=== PATIENT | male | born 1975 ===

== ENCOUNTER 2021-05-12 09:54 | Outpatient (REF) | payer BC, SELFPAY ==
[2021-05-12 11:55] LABS: Alanine Aminotransferase 26 U/L (0-40); Albumin Level 4.2 g/dL (3.5-5.0); Alkaline Phosphatase 78 U/L (39-117); Anion Gap 10 (12-20); Aspartate Amino Transferase 20 U/L (5-37); Blood Urea Nitrogen 12 mg/dL (9-16); Calcium 9.3 mg/dL (8.4-10.2); Carbon Dioxide 30 mmol/L (22-29); Chloride 103 mmol/L (96-108); Cholesterol 184 mg/dL; Estimated Glomerular Filt Rate > 60; Glucose Fasting 155 mg/dL (60-99); HDL Cholesterol 82 mg/dL; LDL Cholesterol Calculated 93 mg/dl; Potassium 4.2 mmol/L (3.3-5.1); Sodium 139 mmol/L (135-145); Total Protein 6.7 g/dL (6.5-8.0); Triglycerides 47 mg/dL
[2021-05-12 12:12] LABS: TSH reflex Free T4 1.54 uIU/mL (0.32-4.0)
== END 2021-05-12 09:55 | disposition home or self-care (01) ==
LOC: HO.WFDLDS 09:54
PROVIDERS: Visit Provider Family Medicine
DX: Z00.00 Encounter for general adult medical examination without abnormal findings (principal); Z12.5 Encounter for screening for malignant neoplasm of prostate
CPT/HCPCS: 36415; 80053; 80061; 84153; 84443

== ENCOUNTER → 2021-10-13 13:55 | Outpatient (BNVA) | payer BC, SELFPAY | PROVIDERS: PCP Family Medicine; Visit Provider Internal Medicine Endocrinology, Diabetes & Metabolism | DX: E10.9 Type 1 diabetes mellitus without complications (principal); Z79.4 Long term (current) use of insulin | CPT/HCPCS: 82947 ==

== ENCOUNTER → 2021-11-28 11:16 | Outpatient (BNVA) | payer BC, SELFPAY | PROVIDERS: PCP Family Medicine; Visit Provider Dietitian, Registered | DX: E10.9 Type 1 diabetes mellitus without complications (principal) | CPT/HCPCS: 97802 ==

== ENCOUNTER → 2022-01-17 11:37 | Outpatient (BNVA) | payer BC, SELFPAY | PROVIDERS: PCP Family Medicine; Visit Provider Internal Medicine Endocrinology, Diabetes & Metabolism | DX: E10.9 Type 1 diabetes mellitus without complications (principal) | CPT/HCPCS: 82947; 83036 ==

== ENCOUNTER 2022-02-02 09:19 | Outpatient (REF) | payer BC, SELFPAY ==
[2022-02-06 20:35] LABS: Glutamic acid decarboxylase Ab 53 IU/mL (<5)
== END 2022-02-02 09:20 | disposition home or self-care (01) ==
LOC: HO.WFDLDS 09:19
PROVIDERS: Visit Provider Internal Medicine Endocrinology, Diabetes & Metabolism
DX: E10.9 Type 1 diabetes mellitus without complications (principal)
CPT/HCPCS: 36415; 86341

== ENCOUNTER 2022-02-07 09:25 | Outpatient (REF) | payer BC, SELFPAY ==
[2022-02-07 12:39] LABS: Creatinine Urine 48.69 mg/dL; Microalbumin Urine < 5.0 mg/L
== END 2022-02-07 09:26 | disposition home or self-care (01) ==
LOC: HO.WFDLNP 09:25
PROVIDERS: PCP Family Medicine; Visit Provider Internal Medicine Endocrinology, Diabetes & Metabolism
DX: E10.9 Type 1 diabetes mellitus without complications (principal)
CPT/HCPCS: 82043

== ENCOUNTER → 2022-05-16 09:48 | Outpatient (BNVA) | payer BC, SELFPAY | PROVIDERS: PCP Family Medicine; Visit Provider Internal Medicine Endocrinology, Diabetes & Metabolism | DX: E10.9 Type 1 diabetes mellitus without complications (principal) | CPT/HCPCS: 82947; 83036 ==

== ENCOUNTER → 2022-08-22 09:03 | Outpatient (BNVA) | payer BC, SELFPAY | PROVIDERS: PCP Family Medicine; Visit Provider Internal Medicine Endocrinology, Diabetes & Metabolism | DX: E10.9 Type 1 diabetes mellitus without complications (principal) | CPT/HCPCS: 82947; 83036 ==

== ENCOUNTER 2022-09-29 09:57 | Outpatient (REF) | payer BC, SELFPAY ==
[2022-09-29 12:14] LABS: Cholesterol 218 mg/dL; HDL Cholesterol 80 mg/dL; LDL Cholesterol Calculated 127 mg/dl; Triglycerides 57 mg/dL
== END 2022-09-29 09:58 | disposition home or self-care (01) ==
LOC: HO.WFDLDS 09:57
PROVIDERS: Visit Provider Internal Medicine Endocrinology, Diabetes & Metabolism
DX: E10.9 Type 1 diabetes mellitus without complications (principal)
CPT/HCPCS: 36415; 80061

== ENCOUNTER 2022-11-21 09:38 | Outpatient (REF) | payer BC, SELFPAY ==
[2022-11-21 11:52] LABS: Alanine Aminotransferase 19 U/L (0-40); Albumin Level 4.1 g/dL (3.5-5.0); Alkaline Phosphatase 79 U/L (39-117); Anion Gap 10 (12-20); Appearance Urine Clear; Aspartate Amino Transferase 18 U/L (5-37); Bilirubin Total 0.7 mg/dL (0.0-1.0); Blood Urea Nitrogen 17 mg/dL (9-16); Calcium 9.4 mg/dL (8.4-10.2); Carbon Dioxide 28 mmol/L (22-29); Chloride 106 mmol/L (96-108); Cholesterol 200 mg/dL; Color Urine Yellow; Estimated Glomerular Filt Rate > 60; Glucose Fasting 118 mg/dL (60-99); Glucose Urine UA Negative (Negative); HDL Cholesterol 92 mg/dL; LDL Cholesterol Calculated 99 mg/dl; Leukocyte Esterase Urine Negative (Negative); Nitrite Urine Negative (Negative); Potassium 4.1 mmol/L (3.3-5.1); Sodium 140 mmol/L (135-145); Total Protein 6.9 g/dL (6.5-8.0); Triglycerides 49 mg/dL; Urine Blood Negative (Negative); Urine Ketones Negative (Negative); Urine Protein Negative (Neg-Trace)
[2022-11-21 11:57] LABS: Prostate Specific Antigen Scr 0.29 ng/mL (<0.05-4.0); TSH reflex Free T4 2.49 uIU/mL (0.32-4.0)
[2022-11-21 12:15] LABS: Creatinine Urine 155.42 mg/dL; Microalbum/Creatinine Ratio Ur 3.8 ug/mg cr
== END 2022-11-21 09:39 | disposition home or self-care (01) ==
LOC: HO.WFDLDS 09:38
PROVIDERS: Visit Provider Family Medicine
DX: Z00.00 Encounter for general adult medical examination without abnormal findings (principal); Z12.5 Encounter for screening for malignant neoplasm of prostate; I10 Essential (primary) hypertension
CPT/HCPCS: 36415; 80053; 80061; 81003; 82043; 84153; 84443

== ENCOUNTER 2022-12-22 09:03 | Outpatient (AMB) | payer BC, SELFPAY ==
--- NOTE | 2022-12-22 09:10 | MHC.OFFVIS ---
Intake Vital Signs 12/22/22 09:13 Height 6 ft 1 in Weight 225 lb 1.471 oz BMI 29.7 BP 100/64 Blood Pressure Location Lt brachial Position Sitting Pulse 80 Pulse Source Pulse Oximeter Intake Visit Reasons: Type 1 DM Intake Note: Patient present today to follow up on Type 1 Diabetes Mellitus. Patient receives DME supplies through: [facility] Last Diabetic Eye exam: Has an upcoming appointment Last Podiatry Visit: Does not see a Line Servicer Random Glucose: 315 mg/dl HgA1C: 7.2% 11/21/2022 Laboratory Mechanical Technician Required: No Accompanied by: Self / Same As Patient Allergies Penicillins Allergy (Verified 12/22/22 09:14) unknown HPI HPI Comments History of Present Illness Details 47 YO M with is seen in consultation for T1DM at the request of PCP. Initially diagnosed with T1DM in age 41 when presented with DKA. Was seen several times by CDE Current regimen: Lantus 18 units Humalog 1:20 carb counting 1:50 for correction Dexcom download shows average glucose to be 171 with 79 standard deviations . He is wearing the sensor 79% of the time. 57% range with 38% hyperglycemia and 4% low and <1% very low. Trend is upward overnight with some hypoglycemia Patient admits snacking several times before going to bed Very rare sporadic hypoglycemia Treats lows with juice packs . does not Checks sugar after to ensure it is rising. . Family history of autoimmunity in daughter Type 1 DM Has eyes checked yearly, last eye exam 1 yr ago ,has appt this yr no retinopathy. Denies neuropathy, l Denies nephropathy, on Not AMRITA/ARB. Denies history of CAD. Diet/Carb counting: Yes Had prior episodes of DKA. Denies prior severe episodes of hypoglycemia requiring help or hospitalization. Labs: [facility] Medical History Anxiety Type 1 diabetes mellitus Surgical History No pertinent past surgical history Family History Mother Cancer Father No problems noted. Brother Mental health disorder Sister Mental health disorder Daughter Type 1 diabetes mellitus Social History Housing: House Alcohol intake: current Alcohol intake frequency: holidays/special occasions only Patient Tobacco Use Status: Never used Tobacco e-Cigarette/Vaping Use: Never Used Second Hand Smoke Exposure: No service: No Current occupational status: employed Current occupational exposures/hazards: No Cognitive needs: No Hearing needs: No Vision needs: No Physical Exam Vital Signs: BMI result Body Mass Index 29.7 Absence of Cushingoid features. Absence of acromegalic features. Neck exam reveals nl size thyroid about 15 gms. No thyroid nodules palpable. No carotid bruits present. Lungs CTA. Heart S1 S2, Reg R/R. No M/R/ G. Skin exam reveals absence of vitiligo or acanthosis nigricans. Abdominal exam reveals Soft NT/ND with NA BS. No organomegaly present. Extrem Other: Visual exam of foot performed. No ulcerations or open lesions. No onchomycosis, no callouses.Pulses 2 + distally. Sensation intact to monofilament exam. Vibratory sensation sensed 10 seconds in right, 10 seconds in left with 128 Hz tuning fork Assessment & Plan Assessment & Plan (1) Type 1 diabetes mellitus: Code(s): E10.9 - Type 1 diabetes mellitus without complications Plan: This is a 46-year-old white male with a history of type 1 diabetes being treated with basal-bolus insulin with good glycemic control no known microvascular or macrovascular complications. Plan is? to? 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 He is probably experiencing Randa affect with rising blood sugar after 03:00 a.m.? Should follow-up with the ict educator. ? He would be a good candidate for? an insulin pump perhaps an Omnipod 5 if patient is willing to move forward although he was not in past . Coding Level of Care Code Est Pt Level 4 (42556) Diagnoses Type 1 diabetes mellitus E10.9
[2022-12-22 09:13] VITALS: BP 100/64; PULSE 80; BMI 29.7
[2022-12-22 09:22] LABS: Glucose, Whole Blood 315 mg/dL (60-115)
== END 2022-12-22 09:40 | disposition home or self-care (01) ==
PROVIDERS: PCP Family Medicine; Visit Provider Internal Medicine Endocrinology, Diabetes & Metabolism
DX: E10.9 Type 1 diabetes mellitus without complications (principal)
CPT/HCPCS: 99214

== ENCOUNTER → 2022-12-22 09:03 | Outpatient (BNVA) | payer BC, SELFPAY | PROVIDERS: Visit Provider Internal Medicine Endocrinology, Diabetes & Metabolism | DX: E10.9 Type 1 diabetes mellitus without complications (principal); Z79.4 Long term (current) use of insulin | CPT/HCPCS: 82947 ==

== ENCOUNTER 2023-06-28 08:51 | Outpatient (AMB) | payer BC, SELFPAY ==
--- NOTE | 2023-06-28 08:56 | A.OFFPC_ITS ---
Vital Signs 06/28/23 08:57 Height 6 ft 1 in Weight 224 lb 4 oz BMI 29.6 BP 126/70 Blood Pressure Location Rt brachial Position Sitting Respiration 13 Pulse 80 Pulse Source Pulse Oximeter Temp 97.5 F Temp Source Temporal Artery Scan Pulse Oximetry (%) 99 Oxygen Delivery Method Room Air Intake Visit Reasons: CPE with f/u labs and health maintenance Student Assistance Counselor Required: No Accompanied by: Self / Same As Patient Allergies Penicillins Allergy (Verified 06/28/23 09:06) unknown Tobacco use date assessed: 06/28/23 Dental Screening Dental Screen Date: 06/28/23 Did you have a dental visit in the last 12 months?: No Did you have a dental problem in the last 6 months where you did not have access to dental care?: No Was dental information given to patient?: Patient has dentist HPI CPE with f/u labs and health maintenance HPI Details 47 y/o male presents for a CPE with f/u labs and health maintenance. Labs were drawn 11/21/22. Reviewed labs with pt. Triglycerides 49. TC 200. LDL 99. HDL 92. TSH levels were fine. Last A1c 11/21/22 7.2%. He is on insulin glargine and lispro. He follows up with endocrinology Dr. Gould. A1c today 06/28/23 7.8%. He continues to exercise and keep himself active. He reports he keeps up with his diabetic eye exams. Cologuard test negative. [facility] Medical History Anxiety Type 1 diabetes mellitus Surgical History No pertinent past surgical history Family History Mother Cancer Father No problems noted. 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 1. Little interest or pleasure in doing things: not at all 2. Feeling down, depressed, or hopeless: several days 3. Trouble falling or staying asleep, or sleeping too much: not at all 4. Feeling tired or having little energy: not at all 5. Poor appetite or overeating: not at all 6. Feeling bad about yourself - or that you are a failure or have let yourself or your family down: several days 7. Trouble concentrating on things, such as reading the newspaper or watching television: not at all 8. Moving or speaking so slowly that other people could have noticed. Or the opposite - being so fidgety or restless that you have been moving around a lot more than usual: not at all 9. Thoughts that you would be better off or of hurting yourself in some way: not at all Total score: 2 Depression Screening Interpretation: Negative Depression Screening Done: Yes [id number] - PHQ-9 Billing: Yes Source: Developed by Drs. Roni Daly, Colleen Phillips, Fam Rodriguez and colleagues, with an educational malena from [employer]. Thrive Questionnaire Date Thrive assessed: 06/28/23 I am a: Patient What is your living situation today?: I have a steady place to live Within the past 12 months, did the food you bought not last and you didn't have the money to get more?: Never true Within the past 12 months, did you worry whether your food would run out before you got money to buy more?: Never true Do you have trouble paying for medicines?: No Do you have trouble getting transportation to medical appointments?: No Do you have trouble paying your heating and electricity bill?: No Do you have trouble taking care of your child, family member or friend?: No Do you have trouble with day-to-day activities such as bathing, preparing meals, shopping, managing finances, etc.?: No Are you currently unemployed and looking for a job?: No Are you interested in more education?: Yes Please select the resources that you would like help with: Education AUDIT C Alcohol Use Questionnaire (AUDIT-C) 1. How often do you have a drink containing alcohol?: 4 or more times a week 2. How many drinks containing alcohol do you have on a typical day when you are drinking?: 3 or 4 3. How often do you have six or more drinks on one occasion?: Never Total Score: 5 DANNA-7 AMB Questionnaire DANNA-7 Date DANNA - 7 assessed: 06/28/23 Feeling nervous, anxious, or on edge: 3 = Nearly every day Not being able to stop or control worryin = Several days Worrying too much about different things: 0 = Not at all Trouble relaxin = Not at all Being so restless that it is hard to sit still: 0 = Not at all Becoming easily annoyed or irritable: 1 = Several days Feeling afraid as if something awful might happen: 0 = Not at all Total DANNA-7 score (0-4 normal; 5-9 mild; 10-14 moderate; 15-21 severe): 5 Source: Developed by Drs. Roni Daly, Colleen Phillips, Fam Rodriguez and colleagues, with an educational malena from [employer]. Review of Systems Const Denies chills, Denies fatigue, Denies fever(s), Denies headache(s) and Denies weakness Eyes Denies change in vision ENT Denies dizziness, Denies headache(s), Denies hearing loss, Denies nasal congestion, Denies sinus pain, Denies sinus pressure and Denies sore throat Card Denies chest pain, Denies lightheadedness, Denies dyspnea and Denies other (palpitations) Resp Denies cough, Denies dyspnea and Denies wheezing GI Denies abdominal pain, Denies melena, Denies hematochezia, Denies change in bowel habits, Denies dyspepsia and Denies nausea Denies hematuria and Denies dysuria Musc Denies abnormal gait, Denies myalgias, Denies arthralgias, Denies numbness and Denies tingling Skin/Breast Denies rash, Denies unusual bruising and Denies wounds Neuro Denies abnormal gait, Denies dizziness, Denies headache(s), Denies memory loss, Denies numbness, Denies Sensory deficit (Neuro), Denies tingling and Denies weakness Psych Denies anxiety, Denies depression and Denies memory loss Endo Denies cold intolerance, Denies fatigue, Denies heat intolerance, Denies polydipsia and Denies polyuria Amilcar/Lymph Denies easy bleeding and Denies easy bruising Aller/Immun Denies wheezing Physical exam (Primary Care) Vital Signs: Last Vital Signs Temp 97.5 F 06/28/23 08:57 Pulse 80 06/28/23 08:57 Resp 13 06/28/23 08:57 BP 126/70 06/28/23 08:57 Pulse Ox 99 06/28/23 08:57 Oxygen Delivery Method Room Air 06/28/23 08:57 BMI result Body Mass Index 29.6 Tobacco/Smoking Status: Tobacco use Status Tobacco use date assessed 06/28/23 06/28/23 09:17 Patient Tobacco Use Status Never used Tobacco 06/28/23 09:03 e-Cigarette/Vaping Use Never Used 06/28/23 09:03 PHQ-9: PHQ-9 Score PHQ-9: Total score 2 06/28/23 09:18 Depression Screening Interpretation: Negative Thrive Assessment: Date of Thrive Assessment Date Thrive assessed 06/28/23 06/28/23 09:17 Const General: no acute distress, well developed, alert and awake Nutritional Appearance: well nourished Orientation/consciousness: patient oriented x3 HENMT Head: Yes normocephalic and Yes atraumatic Ears: hearing grossly normal bilaterally and TM's normal bilaterally General nose exam: Normal external nose present and Normal nares present Mouth: Normal oral and palatal mucosa present and moist mucous membranes Teeth and gingiva: dentition normal Throat: Yes posterior oropharynx normal Eyes General: appearance normal, both eyes and all related structures Pupils: Equal, round and reactive pupils present and Pupil accommodation reflex normal EOM: EOMs intact bilaterally Neck Neck: Yes normal visual inspection, Yes no lymphadenopathy and Yes trachea midline Thyroid: Thyroid normal Carotids: no bruits Lymphatic: no lymphadenopathy noted Chest Chest palpation & inspection: normal inspection of the chest Resp Effort & Inspection: normal respiratory effort Auscultation: clear to auscultation bilaterally Cardio Rate: regular rate Rhythm: regular rhythm Heart sounds: S1 normal heart sound present, S2 normal heart sound present, no gallops, no murmurs and no rubs Bruits: no abdominal aortic bruits and no carotid bruits GI Palpation (GI): No Abdominal aortic bruit present, Soft to palpation, nontender, No hepatosplenomegaly present and No Rebound tenderness present Auscultation: normal bowel sounds General: Yes no CVA tenderness Back/Spine/Pelvis Back: no CVA tenderness Cervical Spine: cervical ROM normal and No Cervical spine tenderness Thoracic/Lumbar Spine: thoraco-lumbar ROM normal, No pain with thoraco-lumbar ROM, No thoracic spinal tenderness and No lumbar spinal tenderness Skin Lesions: no lesions Rashes: no rashes Trauma: no lacerations or abrasions Wounds: no wounds Nails: normal Neuro General: patient oriented x3 Cranial nerves: Yes Equal, round and reactive pupils present Cognition (Neuro): normal cognition Gait exam (Neuro): Normal gait present Motor exam (neuro): 5/5 motor strength present throughout Sensory Exam: No Sensory deficit (Neuro) Deep tendon reflexes (DTR's): Right patellar reflex intensity grade: 2+ and Left patellar reflex intensity grade: 2+ Extrem General: Yes normal to inspection and No edema Psych Appearance: grossly normal Affect: normal affect Attitude: cooperative Thought process: Normal thought process present Results AMB Hemoglobin A1c AMB Hemoglobin A1c 7.8 % Last Edit by Juliann Joy MA on 06/28/23 09:42 Assessment and Plan Assessment & Plan (1) Adult general medical exam: Code(s): Z00.00 - Encounter for general adult medical examination without abnormal findings Plan: 47-year-old?male?presents?for?complete?physical?exam Encouraged?healthy?diet?with?active?lifestyle?and?plenty?of?exercise (2) Screening for colon cancer: Code(s): Z12.11 - Encounter for screening for malignant neoplasm of colon Plan: Recent?Cologuard?test?negative Up-to-date (3) Screening for prostate cancer: Code(s): Z12.5 - Encounter for screening for malignant neoplasm of prostate Plan: PSA?was?within?normal?limits Will?continue?annual?screening (4) Type 1 diabetes mellitus: Code(s): E10.9 - Type 1 diabetes mellitus without complications Plan: A1c?is?above?goal?of?7.0% Continue?working?on?diabetic?diet?and?exercise Continue?current?medication?regimen?and?follow-up?with?. Orders: Orders AMB Hemoglobin A1c Today E10.9 - Type 1 diabetes mellitus without complications Medications: Changed From citalopram 20 mg PO DAILY 90 days 90 tabs 1RF To citalopram 30 mg (1.5 x 20 mg) PO DAILY 135 tabs 1RF 90 days Coding Level of Care Code Est Pt Level 3 (89887) Est Pt Prev Care 40-64y(46883) Diagnoses Adult general medical exam Z00.00 Screening for colon cancer Z12.11 Screening for prostate cancer Z12.5 Type 1 diabetes mellitus E10.9
[2023-06-28 08:57] VITALS: BP 126/70; PULSE 80; RESP 13; TEMP 36.4; O2SAT 99; BMI 29.6
== END 2023-06-28 10:07 | disposition home or self-care (01) ==
PROVIDERS: PCP Family Medicine; Visit Provider Family Medicine
DX: Z00.00 Encounter for general adult medical examination without abnormal findings (principal); Z12.11 Encounter for screening for malignant neoplasm of colon; Z12.5 Encounter for screening for malignant neoplasm of prostate; E10.9 Type 1 diabetes mellitus without complications
CPT/HCPCS: 83036; 99396

== ENCOUNTER 2023-08-02 08:35 | Outpatient (AMB) | payer BC, SELFPAY ==
--- NOTE | 2023-08-02 08:37 | MHC.OFFVIS ---
Intake Vital Signs 08/02/23 08:40 Height 6 ft 1 in Weight 220 lb 10.923 oz BMI 29.1 BP 112/70 Blood Pressure Location Rt brachial Position Sitting Pulse 79 Pulse Source Pulse Oximeter Intake Visit Reasons: DM2-confirmed Intake Note: Patient present today to follow up on Type 1 Diabetes Mellitus. 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 Initially diagnosed with T1DM in age 41 when presented with DKA. Was seen several times by CDE Current regimen: Lantus 18 units Humalog 1:15 carb counting 1:50 for correction Dexcom download shows average glucose to be 207 with standard deviations 86 . He is wearing the sensor 71% of the time. 43 % range with 56% hyperglycemia and <1% low and % very low. Trend is downward after breakfast with some hypoglycemia Patient admits snacking several times before going to bed and trend is upward if dinner Very rare sporadic hypoglycemia Treats lows with juice packs . does not Checks sugar after to ensure it is rising. . Family history of autoimmunity in daughter Type 1 DM Has eyes checked yearly, last eye exam Apr 2023 ,has appt this yr no retinopathy. Denies neuropathy, l Denies nephropathy, on Not AMRITA/ARB. Denies history of CAD. Diet/Carb counting: Yes Had prior episodes of DKA. Denies prior severe episodes of hypoglycemia requiring help or hospitalization. Labs: [facility] Medical History Anxiety Type 1 diabetes mellitus Surgical History No pertinent past surgical history Family History Mother Cancer Father No problems noted. 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 Absence of acromegalic features. Neck exam reveals nl size thyroid about 15 gms. No thyroid nodules palpable. No carotid bruits present. Lungs CTA. Heart S1 S2, Reg R/R. No M/R/ G. Skin exam reveals absence of vitiligo or acanthosis nigricans. Abdominal exam reveals Soft NT/ND with NA BS. No organomegaly present. Extrem Other: Visual exam of foot performed. No ulcerations or open lesions. No onchomycosis, no callouses.Pulses 2 + distally. Sensation intact to monofilament exam. Vibratory sensation sensed 10 seconds in right, 10 seconds in left with 128 Hz tuning fork Assessment & Plan Assessment & Plan (1) Type 1 diabetes mellitus: Code(s): E10.9 - Type 1 diabetes mellitus without complications Plan: This is a 47-year-old white male with a history of type 1 diabetes being treated with basal-bolus insulin with fair not optimal glycemic control no known microvascular or macrovascular complications. Plan is? to?loosen the insulin: Carbohydrate 1:18 before breakfast and tighten to 1: 12 before dinner .? Should follow-up with the peer educator. ? He would be a good candidate for? an insulin pump perhaps an Omnipod 5 if patient is willing to move forward although he was not in past . Coding Level of Care Code Est Pt Level 4 (15338) Diagnoses Type 1 diabetes mellitus E10.9
[2023-08-02 08:40] VITALS: BP 112/70; PULSE 79; BMI 29.1
[2023-08-02 09:10] LABS: Glucose, Whole Blood 222 mg/dL (60-115)
== END 2023-08-02 09:07 | disposition home or self-care (01) ==
PROVIDERS: PCP Family Medicine; Visit Provider Internal Medicine Endocrinology, Diabetes & Metabolism
DX: E10.9 Type 1 diabetes mellitus without complications (principal)
CPT/HCPCS: 99214

== ENCOUNTER → 2023-08-02 08:35 | Outpatient (BNVA) | payer BC, SELFPAY | PROVIDERS: PCP Family Medicine; Visit Provider Internal Medicine Endocrinology, Diabetes & Metabolism | DX: E10.9 Type 1 diabetes mellitus without complications (principal) | CPT/HCPCS: 82947 ==

== ENCOUNTER 2023-12-05 10:01 | Outpatient (AMB) | payer BC, SELFPAY ==
[2023-12-05 10:05] VITALS: BP 106/68; PULSE 94; BMI 29.4
--- NOTE | 2023-12-05 10:05 | MHC.OFFVIS ---
Vital Signs 12/05/23 10:05 Height 6 ft 1 in Weight 222 lb 14.197 oz BMI 29.4 BP 106/68 Blood Pressure Location Lt brachial Position Sitting Pulse 94 Pulse Source Pulse Oximeter Intake Visit Reasons: T1DM/LVM Intake Note: Patient present today to follow up on Type 1 Diabetes Mellitus. 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 He was last seen by Dr. Gould 07/31/2023. Initially diagnosed with T1DM in age 41 when presented with DKA. Current regimen: Lantus 18 units Humalog 1:15 carb counting 1:50 for correction Dexcom download shows average glucose to be 207 with standard deviations 86 . He is wearing the sensor 71% of the time. 43 % range with 56% hyperglycemia and <1% low and % very low. Trend is high after supper. He meal preps for breakfast and lunch but is not as consistent at dinner and tends to stress overeat. 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 He does report that he is drinking more alcohol than pre pandemic. He does not drink daily. At least a few times per week he has 1-4 shots of bourbon. Very rare sporadic hypoglycemia Treats lows with juice packs or 3 packs of smarties. Family history of autoimmunity in daughter Type 1 DM Has eyes checked yearly, last eye exam Apr 2023, He will schedule for this April. no retinopathy. Denies neuropathy Denies nephropathy, on Not AMRITA/ARB. Denies history of CAD. Diet/Carb counting: Yes Had prior episodes of DKA. Denies prior severe episodes of hypoglycemia requiring help or hospitalization. [facility] Medical History Anxiety Type 1 diabetes mellitus Surgical History No pertinent past surgical history Family History Mother Cancer Father No problems noted. 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 No ulcerations or open lesions. No onchomycosis, no callouses. Sensation intact to monofilament exam. Vibratory sensation is slightly reduced with 128 Hz tuning fork. Results AMB Hemoglobin A1c AMB Hemoglobin A1c 7.4 % Last Edit by HUNG Buckley on 12/05/23 10:24 Results Reviewed Results Reviewed: Laboratory Last Values Glucose (Clinic) 140 mg/dL (60-115) H 12/05/23 10:12 Hgb A1c (Clinic) 7.4 % (4.0-6.0) H 12/05/23 10:18 Assessment & Plan Assessment & Plan (1) Type 1 diabetes mellitus: Code(s): E10.9 - Type 1 diabetes mellitus without complications Category: Medical Plan: A1c 7.4% down from 7.8%. We reviewed need to obtain an A1c of 7% with targets blood sugar fasting 110 and less than 160-182 hours after meals. He will work on better meal planning for supper. Continue current medications: Lantus 18 units Humalog 1:15 carb counting 1:50 for correction He may need adjustment in insulin to carb ratio for supper meal. The patient was counseled to always carry a source of sugar and on the rule of 15's: Take 3 glucose tablets and repeat again in 15 minutes if blood sugar is not in normal range. Continue to repeat every 15 minutes until blood sugar is normal. The patient was counseled to wear closed toe shoes, never walk barefooted and to inspect the feet daily. For any signs of infection or open wound patient should notify PCP. The patient was counseled to schedule an annual eye examination for 04/24. Orders: Orders AMB Hemoglobin A1c Today E10.9 - Type 1 diabetes mellitus without complications, Z13.9 - Encounter for screening, unspecified Basic Metabolic Panel Fasting 7 Days E10.9 - Type 1 diabetes mellitus without complications Thyroid Stimulating Hormone 7 Days E10.9 - Type 1 diabetes mellitus without complications Microalbumin, Random (w Creat) 7 Days E10.9 - Type 1 diabetes mellitus without complications Lipid Panel 7 Days E10.9 - Type 1 diabetes mellitus without complications Coding Level of Care Code Est Pt Level 4 (64346) Diagnoses Type 1 diabetes mellitus E10.9 Time Spent (min) 30 Comment I spent 30 minutes reviewing labs and diagnostic reports, reviewing previous provider note
[2023-12-05 10:19] LABS: Glucose, Whole Blood 140 mg/dL (60-115)
== END 2023-12-05 10:44 | disposition home or self-care (01) ==
PROVIDERS: PCP Family Medicine; Visit Provider Nurse Practitioner Adult Health
DX: E10.9 Type 1 diabetes mellitus without complications (principal); Z13.9 Encounter for screening, unspecified
CPT/HCPCS: 99214

== ENCOUNTER → 2023-12-05 10:01 | Outpatient (BNVA) | payer BC, SELFPAY | PROVIDERS: PCP Family Medicine; Visit Provider Nurse Practitioner Adult Health | DX: E10.9 Type 1 diabetes mellitus without complications (principal) | CPT/HCPCS: 82947; 83036 ==

== ENCOUNTER 2023-12-19 07:32 | Outpatient (REF) | payer BC, SELFPAY ==
[2023-12-19 11:45] LABS: Anion Gap 9 (12-20); Blood Urea Nitrogen 13 mg/dL (9-16); Calcium 9.5 mg/dL (8.4-10.2); Carbon Dioxide 32 mmol/L (22-29); Chloride 105 mmol/L (96-108); Cholesterol 181 mg/dL (<200); Estimated Glomerular Filt Rate > 60; Glucose Fasting 125 mg/dL (60-99); HDL Cholesterol 75 mg/dL (>40); LDL Cholesterol Calculated 98 mg/dL (<100); Potassium 4.3 mmol/L (3.3-5.1); Sodium 142 mmol/L (135-145); Thyroid Stimulating Hormone 2.91 uIU/mL (0.32-4.0); Triglycerides 40 mg/dL (<150)
[2023-12-19 11:52] LABS: Creatinine Urine 141.59 mg/dL; Microalbumin Urine < 5.0 mg/L
== END 2023-12-19 07:33 | disposition home or self-care (01) ==
LOC: HO.WFDLDS 07:32
PROVIDERS: Visit Provider Internal Medicine Endocrinology, Diabetes & Metabolism
DX: E10.9 Type 1 diabetes mellitus without complications (principal)
CPT/HCPCS: 36415; 80048; 80061; 82043; 82570; 84443

== ENCOUNTER 2024-02-26 09:04 | Outpatient (AMB) | payer BC, SELFPAY ==
--- NOTE | 2024-02-26 08:22 | A.OFFVIS_ITS ---
Vital Signs 02/26/24 09:08 Height 6 ft 1 in Weight 222 lb 10.67 oz BMI 29.4 BP 116/70 Blood Pressure Location Rt brachial Position Sitting Pulse 73 Pulse Source Pulse Oximeter Intake Visit Reasons: T1DM/CONFIRMED Intake Note: Patient presents today for a follow-up on Type 1 Diabetes Mellitus: Last Diabetic eye exam was on: 04/2023 Last Podiatry exam was on: Does not see a General Internal Medicine Doctor Most recent HbA1c: 7.4%, 12/05/2023 Random Glucose- 89 mg/dL, Today Care Manager Required: No Accompanied by: Self / Same As Patient Allergies Penicillins Allergy (Verified 02/26/24 09:08) unknown HPI Comments Details: 48 YO M is seen in follow up for T1DM. He was last seen by myself 12/05/23, by Surveillance Investigator on 02/17/24.Dr. Gould 07/31/2023. Initially diagnosed with T1DM in age 41 when presented with DKA. Current regimen: Lantus 18 units Humalog 1:15 carb counting 1:50 for correction night time correction 1:80 He reports that numbers have been higher as he has not had a kitchen for the past 2 months in his been doing were take out and in addition has not had his dog to walk. His kitchen is now complete and he is back to walking his dogs. Dexcom average glucose: 197 14 day continuous glucose monitor report reviewed Glucose Managment indicator 8% Days with CGM data 93% % TIme in ranges: Twenty-six % very high (above 250) 24 % high ?(181-250) 49 % in range ?(70-180] 1 % low (69-55) 1 % ?very low (below 54) 82 Standard Deviation Interpretation [having nocturnal hyperglycemia followed by lows in the morning variability during the daytime with highs postprandial followed by near normal after several hours] He meal preps for breakfast and lunch but is not as consistent at dinner and tends to stress overeat. 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 He reports that he had been drinking more alcohol than pre pandemic but has cut back since his last visit. He does not drink daily. Several shots of bourbon per week Very rare sporadic hypoglycemia Treats lows with juice packs or 3 packs of smarties. Family history of autoimmunity in daughter Type 1 DM Has eyes checked yearly, last eye exam Apr 2023, He will schedule for this April. no retinopathy. Denies neuropathy no numbness, tingling or cramping No nephropathy, Not on AMRITA/ARB. 01/01 microalbumin <5.0 eGFR>60 Denies history of CAD. not on statin 01/01 ldl 98 Diet/Carb counting: Yes Had prior episodes of DKA. Denies prior severe episodes of hypoglycemia requiring help or hospitalization. [facility], [facility] Medical History Anxiety Type 1 diabetes mellitus Surgical History No pertinent past surgical history Family History Mother Cancer Father No problems noted. 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 Absence of acromegalic features. Neck exam reveals nl size thyroid about 15 gms. No thyroid nodules palpable. Heart S1 S2, Reg R/R. No M/R G. Skin exam reveals absence of vitiligo or acanthosis nigricans. No edema Extrem Other: Visual exam of foot performed. No ulcerations or open lesions. No inter digit maceration or fissuring. No onychomycosis, no callouses. Sensation intact to monofilament exam. Vibratory sensation is normal with 128 Hz tuning fork. Office Procedures Glucose Monitoring Details Details: see hpi [id number] - Glucose monitoring, continuous-physician I&R Procedure code (CPT) selection complete Results Reviewed Results Reviewed: Laboratory Tests 12/05/23 12/19/23 12/19/23 10:18 07:37 Unknown Potassium 4.3 Estimated GFR > 60 Hgb A1c (Clinic) 7.4 H Triglycerides 40 Cholesterol 181 LDL Cholesterol, Calc 98 HDL Cholesterol 75 TSH 2.91 Urine Microalbumin < 5.0 Assessment & Plan Assessment & Plan (1) Type 1 diabetes mellitus: Code(s): E10.9 - Type 1 diabetes mellitus without complications Category: Medical Plan: Type 1 diabetic with no micro or macrovascular complications on basal bolus insulin. Most recent A1c was 7.4%. We will prescribe change from Lantus to Tresiba 18-20 units. He has not been able to tolerate Lantus and does need additional overnight coverage unless variability is of numbers during the day. A consistent base with Tresiba we will allow for easier pre meal correction and lower his A1c. Orders: Orders AMB Glucose Monitoring Today E10.9 - Type 1 diabetes mellitus without complications Medications: New Tresiba FlexTouch U-200 (insulin degludec) 18-20 units subcutaneously bedtime; 90 days 9 mL 3RF NS E10.9 - Type 1 diabetes mellitus without complications Coding Level of Care Code Est Pt Level 4 (78904) Complex EM visit Add On G2211 Diagnoses Type 1 diabetes mellitus E10.9 CPT Codes Details - CPT: 85672 - Glucose monitoring, continuous-physician I&R ([id number]) Time Spent (min) 35 Comment Reviewing labs/provider notes, glucose sensor/pump reports, face to face, chart doc
[2024-02-26 09:08] VITALS: BP 116/70; PULSE 73; BMI 29.4
[2024-02-26 09:19] LABS: Glucose, Whole Blood 89 mg/dL (60-115)
== END 2024-02-26 09:37 | disposition home or self-care (01) ==
PROVIDERS: PCP Family Medicine; Visit Provider Nurse Practitioner Adult Health
DX: E10.9 Type 1 diabetes mellitus without complications (principal)
CPT/HCPCS: 95251; 99214

== ENCOUNTER → 2024-02-26 09:04 | Outpatient (BNVA) | payer BC, SELFPAY | PROVIDERS: PCP Family Medicine; Visit Provider Nurse Practitioner Adult Health | DX: E10.9 Type 1 diabetes mellitus without complications (principal) | CPT/HCPCS: 82947 ==

== ENCOUNTER 2024-05-27 09:01 | Outpatient (AMB) | payer BC, SELFPAY ==
--- NOTE | 2024-05-27 09:04 | MHC.OFFVIS ---
Vital Signs 05/27/24 09:07 Height 6 ft 1 in Weight 225 lb 12.054 oz BMI 29.8 BP 108/76 Blood Pressure Location Rt brachial Position Sitting Pulse 77 Pulse Source Pulse Oximeter Intake Visit Reasons: T1DM/CONF Intake Note: Patient present today to follow up on Type 1 Diabetes Mellitus. Last Diabetic Eye exam: 05/20/2024 Last Podiatry Visit: Does not see a Gym Supervisor Random Glucose: 90 mg/dl HgA1C: 8.5% 05/27/24 Ekg/Ecg Technician Required: No Accompanied by: Self / Same As Patient Allergies Penicillins Allergy (Verified 05/27/24 09:08) unknown Medication List - Last Reconciled 05/27/24 by Roni Gould MD blood sugar diagnostic ([place] Ultra Test strips) Test 3 times daily blood-glucose sensor (Dexcom G6 Sensor device) USE DIRECTED CHANGE EVERY 10 DAYS blood-glucose transmitter (Dexcom G6 Transmitter device) USE DIRECTED citalopram 30 mg (1.5 x 20 mg) PO DAILY 90 days insulin lispro 2-12 Units subcut 6 times a day; 30 days pen needle, diabetic As directed injects 4X/day Tresiba FlexTouch U-200 (insulin degludec) 18-20 units subcutaneously bedtime; 90 days NS HPI Comments Details: 48 YO M with is seen in consultation for T1DM at the request of PCP. Initially diagnosed with T1DM in age 41 when presented with DKA. Was seen several times by CDE Current regimen: Trsiba 18 units Humalog 1:15 carb counting 1:50 for correction Dexcom download shows average glucose to be 205 with standard deviations 88 . He is wearing the sensor 79% of the time. 42 % range with 56% hyperglycemia and 2 low and % very low. Trend is downward after breakfast with some hypoglycemia Patient admits snacking several times before going to bed and trend is upward if dinner Very rare sporadic hypoglycemia Treats lows with juice packs . does not Checks sugar after to ensure it is rising. . Family history of autoimmunity in daughter Type 1 DM Has eyes checked yearly, last wk eye exam , no retinopathy. Denies neuropathy, l Denies nephropathy, on Not AMRITA/ARB. Denies history of CAD. Diet/Carb counting: Yes Had prior episodes of DKA. Denies prior severe episodes of hypoglycemia requiring help or hospitalization. Labs: [facility] Medical History Anxiety Type 1 diabetes mellitus Surgical History No pertinent past surgical history Family History Mother Cancer Father No problems noted. 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 Absence of acromegalic features. Neck exam reveals nl size thyroid about 15 gms. No thyroid nodules palpable. No carotid bruits present. Lungs CTA. Heart S1 S2, Reg R/R. No M/R/ G. Skin exam reveals absence of vitiligo or acanthosis nigricans. Abdominal exam reveals Soft NT/ND with NA BS. No organomegaly present. Extrem Other: Visual exam of foot performed. No ulcerations or open lesions. No onchomycosis, no callouses.Pulses 2 + distally. Sensation intact to monofilament exam. Vibratory sensation sensed 10 seconds in right, 10 seconds in left with 128 Hz tuning fork Results AMB Hemoglobin A1c AMB Hemoglobin A1c 8.5 % Last Edit by HUNG Davenport on 05/27/24 09:23 Assessment & Plan Assessment & Plan (1) Type 1 diabetes mellitus: Code(s): E10.9 - Type 1 diabetes mellitus without complications Category: Medical Plan: This is a 47-year-old white male with a history of type 1 diabetes being treated with basal-bolus insulin with fair not optimal glycemic control no known microvascular or macrovascular complications. Plan is? to? tighten to 1: 12 before dinner .? We will again talk to the patient about potential pump initiation particularly iLet but he is not interested in this right now. He will follow up with Tavia Raphael NP in 3 months Orders: Orders AMB Hemoglobin A1c Today E10.9 - Type 1 diabetes mellitus without complications Medications: Refilled blood-glucose transmitter (Dexcom G6 Transmitter device) USE DIRECTED 1 ea 0RF Discontinued blood-glucose sensor (Dexcom G6 Sensor device) Discontinued Reason: Doctor's Order USE DIRECTED CHANGE EVERY 10 DAYS 3 ea 0RF E10.9 - Type 1 diabetes mellitus without complications Coding Level of Care Code Est Pt Level 4 (30616) Complex EM visit Add On G2211 Diagnoses Type 1 diabetes mellitus E10.9
[2024-05-27 09:07] VITALS: BP 108/76; PULSE 77; BMI 29.8
[2024-05-27 09:18] LABS: Glucose, Whole Blood 90 mg/dL (60-115)
== END 2024-05-27 09:32 | disposition home or self-care (01) ==
PROVIDERS: PCP Family Medicine; Visit Provider Internal Medicine Endocrinology, Diabetes & Metabolism
DX: E10.9 Type 1 diabetes mellitus without complications (principal)
CPT/HCPCS: 99214

== ENCOUNTER 2024-06-18 11:41 | Outpatient (AMB) | payer BC, SELFPAY ==
--- NOTE | 2024-06-18 11:52 | A.OFFPC_ITS ---
Vital Signs 06/18/24 11:56 Height 6 ft 1 in Weight 227 lb 2 oz BMI 30.0 BP 124/76 Blood Pressure Location Rt brachial Position Sitting Respiration 16 Pulse 70 Pulse Source Pulse Oximeter Temp 98.2 F Temp Source Oral Pulse Oximetry (%) 99 Oxygen Delivery Method Room Air Intake Visit Reasons: Med f/u Intake Note: patient here for med follow up Factory Hand Required: No Allergies Penicillins Allergy (Verified 06/18/24 11:55) unknown Tobacco use date assessed: 06/18/24 Dental Screening Dental Screen Date: 06/18/24 Did you have a dental visit in the last 12 months?: Yes Did you have a dental problem in the last 6 months where you did not have access to dental care?: No Was dental information given to patient?: Patient has dentist HPI Med f/u HPI Details 48 y/o male presents to f/u diabetes, ch ronic conditions. Followed by Dr. Gould for diabetes. Last A1c 05/27/24 8.5%. Recent lipids 12/19/23. Triglycerides 40. TC 181. LDL 98. HDL 75. Has an appt. with Dr. Gould in August. Had noted some few low blood sugars in the 60s. 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 [facility] Medical History Anxiety Type 1 diabetes mellitus Surgical History No pertinent past surgical history Family History Mother Cancer Father No problems noted. 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 1. Little interest or pleasure in doing things: not at all 2. Feeling down, depressed, or hopeless: not at all 3. Trouble falling or staying asleep, or sleeping too much: not at all 4. Feeling tired or having little energy: not at all 5. Poor appetite or overeating: not at all 6. Feeling bad about yourself - or that you are a failure or have let yourself or your family down: not at all 7. Trouble concentrating on things, such as reading the newspaper or watching television: not at all 8. Moving or speaking so slowly that other people could have noticed. Or the opposite - being so fidgety or restless that you have been moving around a lot more than usual: not at all 9. Thoughts that you would be better off or of hurting yourself in some way: not at all Total score: 0 Source: Developed by Drs. Roni Daly, Colleen Phillips, Fam Rodriguez and colleagues, with an educational malena from [employer]. Thrive Questionnaire Date Thrive assessed: 06/11/24 I am a: Patient What is your living situation today?: I have a steady place to live Within the past 12 months, did the food you bought not last and you didn't have the money to get more?: Never true Within the past 12 months, did you worry whether your food would run out before you got money to buy more?: Never true Do you have trouble paying for medicines?: I choose not to answer this question Do you have trouble getting transportation to medical appointments?: No Do you have trouble paying your heating and electricity bill?: I choose not to answer this question Do you have trouble taking care of your child, family member or friend?: No Do you have trouble with day-to-day activities such as bathing, preparing meals, shopping, managing finances, etc.?: No Are you currently unemployed and looking for a job?: No Are you interested in more education?: I choose not to answer this question Please select the resources that you would like help with: None Currently or been in a relationship where the following occur: No concerns reported THRIVE Score: 0 AUDIT C Alcohol Use Questionnaire (AUDIT-C) 1. How often do you have a drink containing alcohol?: 2-3 times a week 2. How many drinks containing alcohol do you have on a typical day when you are drinking?: 3 or 4 3. How often do you have six or more drinks on one occasion?: Less than monthly Total Score: 5 DANNA-7 AMB Questionnaire DANNA-7 Date DANNA - 7 assessed: 06/28/23 Feeling nervous, anxious, or on edge: 0 = Not at all Not being able to stop or control worryin = Not at all Worrying too much about different things: 0 = Not at all Trouble relaxin = Not at all Being so restless that it is hard to sit still: 0 = Not at all Becoming easily annoyed or irritable: 0 = Not at all Feeling afraid as if something awful might happen: 0 = Not at all Total DANNA-7 score (0-4 normal; 5-9 mild; 10-14 moderate; 15-21 severe): 0 Source: Developed by Drs. Roni Daly, Colleen Phillips, Fam Rodriguez and colleagues, with an educational malena from [employer]. Review of Systems Const Denies chills, Denies fatigue, Denies fever(s), Denies headache(s) and Denies weakness ENT Denies dizziness and Denies headache(s) Card Denies chest pain, Denies lightheadedness, Denies dyspnea and Denies other (Palpitations) Resp Denies cough, Denies dyspnea, Denies wheezing and Denies other ( shortness of breath) Musc Denies numbness and Denies tingling Neuro Denies dizziness, Denies headache(s), Denies numbness, Denies tingling, Denies paresthesias and Denies weakness Psych Denies anxiety and Denies depression Endo Denies fatigue Aller/Immun Denies wheezing Physical exam (Primary Care) Vital Signs: Last Vital Signs Temp 98.2 F 06/18/24 11:56 Pulse 70 06/18/24 11:56 Resp 16 06/18/24 11:56 BP 124/76 06/18/24 11:56 Pulse Ox 99 06/18/24 11:56 Oxygen Delivery Method Room Air 06/18/24 11:56 BMI result Body Mass Index 30.0 Tobacco/Smoking Status: Tobacco use Status Tobacco use date assessed 06/18/24 06/18/24 11:58 Patient Tobacco Use Status Never used Tobacco 06/18/24 11:58 e-Cigarette/Vaping Use Never Used 06/18/24 11:58 PHQ-9: PHQ-9 Score PHQ-9: Total score 0 06/18/24 11:59 Thrive Assessment: Date of Thrive Assessment Date Thrive assessed 06/11/24 06/18/24 11:58 Currently or been in a relationship where the following occur: No concerns reported Const General: no acute distress and well developed Nutritional Appearance: well nourished Orientation/consciousness: patient oriented x3 [facility] Head: Yes normocephalic and Yes atraumatic Eyes General: appearance normal, both eyes and all related structures Pupils: Equal, round and reactive pupils present EOM: EOMs intact bilaterally Resp Effort & Inspection: normal respiratory effort Auscultation: clear to auscultation bilaterally Cardio Rate: regular rate Rhythm: regular rhythm Heart sounds: S1 normal heart sound present, S2 normal heart sound present, no gallops, no murmurs and no rubs Neuro General: patient oriented x3 and gait normal Cranial nerves: Yes Equal, round and reactive pupils present Psych Affect: normal affect Coding Level of Care Code Est Pt Level 3 (22666) Diagnoses Type 1 diabetes mellitus E10.9 Screening for colon cancer Z12.11 Family history of colon cancer Z80.0 Assessment & Plan Assessment & Plan (1) Type 1 diabetes mellitus: Code(s): E10.9 - Type 1 diabetes mellitus without complications Category: Medical Plan: Recent?A1c?in?May?shows?poor?control.??Goal?is?less?than?7.0%. Since?his?visit?with?endocrinology?in?May,?patient?has?improved?his?control ?continuous?glucose?monitor?is?estimating?7.4%?now. Few?low?blood?sugars?and?some?high?blood?sugars?at?night I?advised?he?keep?a?journal?of?his?reaction?to?his?blood?sugars?before?bed what?he?uses?for?snack?or?intervention. Follow-up?with?endocrinology.??Dr Carr?has?been?discussing?insulin?pump?and?patient?is?considering?this. Recent?eye?exam?in?May?was?negative?for?diabetic?retinopathy.??Up-to-date (2) Screening for colon cancer: Code(s): Z12.11 - Encounter for screening for malignant neoplasm of colon Category: Medical Plan: Patient?had?a?Cologuard?test?2?years?ago?but?he?notes?that?he?has?a?brother?with ?history?of?colon?polyps. He?would?like?a?referral?to?[facility]-referred (3) Family history of colon cancer: Code(s): Z80.0 - Family history of malignant neoplasm of digestive organs Category: Medical Plan: As?above Orders: Orders Lipid Panel Today Z00.00 - Encounter for general adult medical examination without abnormal findings UA and rflx microscopic Today Z00.00 - Encounter for general adult medical examination without abnormal findings Comprehensive [place]. Panel Fast Today Z00.00 - Encounter for general adult medical examination without abnormal findings Prostate Specific Antigen Scr Today Z12.5 - Encounter for screening for malignant neoplasm of prostate TSH reflex Free T4 Today Z00.00 - Encounter for general adult medical examination without abnormal findings Referrals Gastroenterology Referral Z12.5 - Encounter for screening for malignant neoplasm of prostate, Z80.0 - Family history of malignant neoplasm of digestive organs
[2024-06-18 11:56] VITALS: BP 124/76; PULSE 70; RESP 16; TEMP 36.8; O2SAT 99
== END 2024-06-18 12:18 | disposition home or self-care (01) ==
PROVIDERS: PCP Family Medicine; Visit Provider Family Medicine
DX: E10.9 Type 1 diabetes mellitus without complications (principal); Z12.11 Encounter for screening for malignant neoplasm of colon; Z80.0 Family history of malignant neoplasm of digestive organs

== ENCOUNTER → 2024-07-25 11:50 | Outpatient (BNVA) | payer BC, SELFPAY | PROVIDERS: PCP Family Medicine; Visit Provider Family Medicine ==

== ENCOUNTER 2024-08-26 09:32 | Outpatient (AMB) | payer BC, SELFPAY ==
--- NOTE | 2024-08-21 13:40 | A.OFFVIS_ITS ---
Vital Signs 08/26/24 09:35 Height 6 ft 1 in Weight 229 lb 4.492 oz BMI 30.2 BP 118/78 Blood Pressure Location Rt brachial Position Sitting Pulse 92 Pulse Source Pulse Oximeter Pulse Oximetry (%) 96 Oxygen Delivery Method Room Air Intake Visit Reasons: T1DM Intake Note: Patient presents today for a follow-up on Type 1 Diabetes Mellitus: Last Diabetic eye exam was on: 05/11/2024 Last Podiatry exam was on: Patient does not see a Pricing Intern Most recent HbA1c: 7.4%, 09/05/2024 Random Glucose- 210 mg/dL, Today Experimental Mechanic Required: No Accompanied by: Self / Same As Patient Allergies Penicillins Allergy (Verified 08/26/24 09:37) unknown Medication List - Last Reconciled 08/26/24 by Tavia Michele NP acetone (urine) test (Ketone Urine Test strips) tid prn glucose over 250, nausea, vomiting, illness blood sugar diagnostic (OneTouch Ultra Test strips) Test 3 times daily blood-glucose sensor (DexCodeNgo G7 Sensor device) As directed every 10 days citalopram 30 mg (1.5 x 20 mg) PO DAILY 90 days insulin lispro 2-12 Units subcut 6 times a day; 30 days pen needle, diabetic As directed injects 4X/day Tresiba FlexTouch U-200 (insulin degludec) 18-20 units subcutaneously bedtime; 90 days NS HPI Comments Details: 48 YO M who was seen in follow-up for type 1 diabetes. He was last seen by Dr. Gould 05/27/2024 at which time his A1c was 8.5% and his insulin to carb ratio was lowered for the supper meal to give him more preprandial supper insulin. Hemoglobin A1c 08/25/24 % Initially diagnosed with T1DM in age 41 when presented with DKA. Was seen several times by CDE Current regimen: Trsiba 18 units Humalog 1:15 carb counting 1:12 for supper 1:50 for correction units of humalog approx 20 units Previous Dexcom average 195 Glucose Managment indicator he % TIme in ranges: Twenty-six % very high (above 250) 26 % high ?(181-250) 47 % in range ?(70-180] 1 % low (69-55) Less than % ?very low (below 54) 78 Standard Deviation Interpretation readings overall 40 points higher than target with some lows after lunch, high overnight Very rare sporadic hypoglycemia Treats lows with juice packs Family history of autoimmunity in daughter Type 1 DM No retinopathy. Last eye examination 05/2024 Denies neuropathy. Does not see podiatry symptoms: No numbness, tingling, pain or cramping in the lower extremities No nephropathy, on Not AMRITA/ARB. 12/19/2023 EGFR>60 No HLD not on statin LDL 98 12/19/2023 Denies history of CAD. 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 Has a daughter with type 1 diabetes Has had prior episodes of DKA. Denies prior severe episodes of hypoglycemia requiring help or hospitalization. [facility] Medical History Anxiety Type 1 diabetes mellitus Surgical History No pertinent past surgical history Family History Mother Cancer Father No problems noted. 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 Absence of acromegalic features. Neck exam reveals nl size thyroid about 15 gms. No thyroid nodules palpable. Heart S1 S2, Reg R/R. No M/R G. Skin exam reveals absence of vitiligo or acanthosis nigricans. No edema Visual exam of foot performed. No ulcerations or open lesions. No inter digit maceration or fissuring. No onychomycosis, no callouses. Sensation intact to monofilament exam. Vibratory sensation is normal with 128 Hz tuning fork. Office Procedures Glucose Monitoring Details Details: See [facility] [address] - Glucose monitoring, continuous-physician I&R Procedure code (CPT) selection complete Results AMB Hemoglobin A1c AMB Hemoglobin A1c 7.4 % Last Edit by HUNG Trevino on 08/26/24 09:49 Assessment & Plan Assessment & Plan (1) Type 1 diabetes mellitus: Code(s): E10.9 - Type 1 diabetes mellitus without complications Category: Medical Plan: This is a 48-year-old white male with a history of type 1 diabetes being treated with basal-bolus insulin with fair not optimal glycemic control no known mi crovascular or macrovascular complications. Difficult to adjust overnight Tresiba as he has had lows in the past. He will continue same insulin to carb and correction factor being slightly more conservative at lunchtime. He will schedule with the personal development educator for 1 time visit for pre pump education. He is already carb counting and using a carb and correction ratio. Additionally he has a daughter that is type 1 and was in the past on an Omnipod. Once he was seen by the educator and I am alerted I will send all necessary supplies and insulin to patient. He will return with an FMLA form for his diabetes. He does require a medical visit at least every 3 months and 4-6 absence his per year before his diabetes typically just for 1 day. The patient had an opportunity to ask questions regarding treatment plan. The patient expressed understanding and agreement with the above treatment plan. The patient is aware they should contact our office by phone for worsening glucose readings or for any low blood sugars which may warrant a change in diabetes medication. Compliance is encouraged with medications and any followup testing/consults which may have been ordered. Orders: Orders AMB Glucose Monitoring Today E10.9 - Type 1 diabetes mellitus without complications AMB Hemoglobin A1c Today E10.9 - Type 1 diabetes mellitus without complications Medications: New acetone (urine) test (Ketone Urine Test strips) tid prn glucose over 250, nausea, vomiting, illness 25 ea 1RF blood-glucose sensor (Dexcom G7 Sensor device) As directed every 10 days 9 ea 3RF Discontinued blood-glucose transmitter (Dexcom G6 Transmitter device) Discontinued Reason: Doctor's Order USE DIRECTED 1 ea 0RF Patient Instructions: The patient was counseled to achieve a target A1C of 7% (154 avg). Fasting blood sugars should be 90-130 in the morning and less than 180 two hours after meals. Reviewed the relationship between poor diabetic control and the development of complications. Check your feet daily looking for any signs of infection, drainage, redness, ulceration and seek medical attention if this occurs. Break in shoes gradually and do not wear open-toed shoes or walk stocking footed or barefooted. Coding Level of Care Code Est Pt Level 4 (60896) Complex EM visit Add On G2211 Diagnoses Type 1 diabetes mellitus E10.9 CPT Codes Details - CPT: 79616 - Glucose monitoring, continuous-physician I&R ([id number]) Time Spent (min) 35 Comment Time spent reviewing labs/provider notes, face to face, chart doc
[2024-08-26 09:35] VITALS: BP 118/78; PULSE 92; O2SAT 96; BMI 30.2
[2024-08-26 09:44] LABS: Glucose, Whole Blood 210 mg/dL (60-115)
== END 2024-08-26 10:06 | disposition home or self-care (01) ==
LOC: HO.ENCR 09:33
PROVIDERS: PCP Family Medicine; Visit Provider Nurse Practitioner Adult Health
DX: E10.9 Type 1 diabetes mellitus without complications (principal)
CPT/HCPCS: 95251; 99214

== ENCOUNTER → 2024-08-26 09:32 | Outpatient (BNVA) | payer BC, SELFPAY | PROVIDERS: PCP Family Medicine; Visit Provider Nurse Practitioner Adult Health | DX: E10.9 Type 1 diabetes mellitus without complications (principal) | CPT/HCPCS: 82947; 83036 ==

== ENCOUNTER 2024-09-02 15:48 | Outpatient (AMB) | payer BC, SELFPAY ==
--- NOTE | 2024-09-02 16:17 | MHC.AMDMED ---
Intake Intake Visit Reasons: T1DM Broadcast Program Director Required: No Accompanied by: Self / Same As Patient Allergies Penicillins Allergy (Verified 08/26/24 09:37) unknown HPI Comprehensive Diabetes Asmnt Most Recent Diabetes Results: No Data to Display [facility] Medical History Anxiety Type 1 diabetes mellitus Surgical History No pertinent past surgical history Family History Mother Cancer Father No problems noted. 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 checks BG times/day Downloaded meter today? yes Patient? reports glycemic control as: fair Most recent Hgb A1C: 7.4 08/26/24 Frequency of low BG: rarely Low BG treatment: smarties Frequency of high BG: daily Does patient check Ketones? yes, patient has current script for ketone strips Has pt been on a pump in the past? No Reviewed insulin pump basics today with Patient. Explained pros and cons of insulin pumps. Showed pt various pumps, infusion sets, and cgms currently available. Reviewed need to wear pump 24/7 and need to change infusion set every 3 days. Also stressed importance of frequent BG checks, 4x daily minimum or use pump that is integrated with CGM.? TDD:35 units Patient demonstrated motivation for continued insulin pump education and understands the need to complete education prior to starting insulin pump for best outcome. Pt is currently using I:CHO of 1:15 for breakfast and lunch, 1:12 for Supper CF 1:50 Corrects to 100 mg/dL during the day, admits to eating carbs before bed to keep glucose elevated overnight so as not to hypoglycemia Patient has decided to use Omnipod 5 with iPhone mihaela Portions of this note were created using voice recognition software, please excuse any words or phrases that may have been misinterpreted. Coding Level of Care Code Est Pt Level 1 (01635) Diagnoses Type 1 diabetes mellitus E10.9
== END 2024-09-02 16:27 | disposition home or self-care (01) ==
LOC: HO.ENCR 15:49
PROVIDERS: PCP Family Medicine; Visit Provider Registered Nurse Diabetes Educator
DX: E10.9 Type 1 diabetes mellitus without complications (principal)

== ENCOUNTER → 2024-09-02 15:48 | Outpatient (BNVA) | payer BC, SELFPAY | PROVIDERS: PCP Family Medicine; Visit Provider Registered Nurse Diabetes Educator | DX: E10.9 Type 1 diabetes mellitus without complications (principal) | CPT/HCPCS: 99211 ==

== ENCOUNTER 2024-09-08 07:52 | Outpatient (AMB) | payer BC, SELFPAY ==
--- NOTE | 2024-09-04 16:10 | MHC.AMDMED ---
Intake Intake Visit Reasons: Omnipod training Police Magistrate Required: No Accompanied by: Self / Same As Patient Allergies Penicillins Allergy (Verified 08/26/24 09:37) unknown HPI Comprehensive Diabetes Asmnt Most Recent Diabetes Results: No Data to Display [facility] Medical History Anxiety Type 1 diabetes mellitus Surgical History No pertinent past surgical history Family History Mother Cancer Father No problems noted. 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 The following topics were reviewed today: -Pump therapy basic concepts: Basal/bolus, insulin to carb ratio, correction factor, insulin on board -Device settings: Bluetooth/mobile connection (if applicable), correct date and time, sound volume -CGM settings(if integrated system): CGM graft views and trend arrows, alerts and alarms, Start new sensor ??? High Alert: Off ??? Low Alert: 80 mg/dL ??? Insulin delivery settings Program insulin to carb ratio, correction factor, target blood glucose, suspend or resume insulin delivery, bolus limit and basal limit settings Instructed patient to only use room temperature insulin, how to load cartridge or fill pod, with insulin. Fill tubing and cannula (if applicable) Inserting infusion set or starting pod Troubleshooting after starting new pod or inserting new insulin set: Occlusion, adhesive tape sensitivity, redness Check BG 2 hours after site change Safety information: Importance of a backup plan, for manual injections, proper prescriptions and emergency supplies ketone strips, and rules for testing for ketones Patient was able to insert insulin set today without difficulty. Patient understands the basic concepts of pump therapy, how to give insulin for meals and snacks, how to troubleshoot for hyper and hypoglycemia. Setting verified by [facility] Basal rate(s) (units/hour) : 12 AM? to 12 AM ? 0.625 units / hr Bolus setting 12 AM to 12 AM 1:15 Correction Factor / Sensitivity Factor 12 AM to 12 AM 1:50 Active Insulin Time:? 4 hours Target(s): 12 AM to 12 AM 110 mg/dL Correct Above 12 AM to 12 AM 150 mg/dL Patient will follow up with [facility] as instructed Patient will contact [facility] with questions or concerns, patient given IT number to support in any technical issues related to insulin pump Portions of this note were created using voice recognition software, please excuse any words or phrases that may have been misinterpreted. Patient Instructions: Pt will f/u with Diabetes Education nurse in 1 week Coding Level of Care Code Tele Est Pt Level 1 (74876) Diagnoses Type 1 diabetes mellitus E10.9
== END 2024-09-08 09:36 | disposition home or self-care (01) ==
LOC: HO.ENCR 07:52
PROVIDERS: PCP Family Medicine; Visit Provider Registered Nurse Diabetes Educator
DX: E10.9 Type 1 diabetes mellitus without complications (principal)
CPT/HCPCS: 99211

== ENCOUNTER 2024-09-18 09:35 | Outpatient (AMB) | payer BC, SELFPAY ==
--- NOTE | 2024-09-18 09:51 | MHC.AMDMED ---
Intake Intake Visit Reasons: 30 min Allergies Penicillins Allergy (Verified 08/26/24 09:37) unknown HPI Comprehensive Diabetes Asmnt Most Recent Diabetes Results: Microalb/Creat Ratio TNP 12/19/23 Cholesterol 181 mg/dL (<200) 12/19/23 HDL Cholesterol 75 mg/dL (>40) 12/19/23 Triglycerides 40 mg/dL (<150) 12/19/23 Creatinine 0.95 mg/dL (0.5-1.4) 12/19/23 Blood Urea Nitrogen 13 mg/dL (9-16) 12/19/23 Sodium 142 mmol/L (135-145) 12/19/23 Potassium 4.3 mmol/L (3.3-5.1) 12/19/23 Chloride 105 mmol/L (96-108) 12/19/23 Carbon Dioxide 32 mmol/L (22-29) H 12/19/23 Calcium 9.5 mg/dL (8.4-10.2) 12/19/23 AST 18 U/L (5-37) 11/21/22 ALT 19 U/L (0-40) 11/21/22 Total Protein 6.9 g/dL (6.5-8.0) 11/21/22 Albumin 4.1 g/dL (3.5-5.0) 11/21/22 [facility] Medical History Anxiety Type 1 diabetes mellitus Surgical History No pertinent past surgical history Family History Mother Cancer Father No problems noted. 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 The following topics were reviewed today: -importance of entering carbohydrates to bolus calculator ??? High Alert: Off ??? Low Alert: 80 mg/dL ??? Patient reports he has just been entering 2 unit bolus, for each meal, instead of adding carbohydrates to bolus calculator and allowing pump to calculate mealtime and correction boluses. Explained to patient in order for pump to calculate correct bolus pump needs current carbohydrate intake and glucose number This can protect against over bolusing and hypoglycemia Patient reports he will now enter carbohydrates instead of standard bolus Discussed the importance of staying in auto mode and the difference between auto mode in manual Patient has follow-up appointment with [employer] SALESPERSON on 10/03/2024 Troubleshooting after starting new pod or inserting new insulin set: Occlusion, adhesive tape sensitivity, redness Check BG 2 hours after site change Safety information: Importance of a backup plan, for manual injections, proper prescriptions and emergency supplies ketone strips, and rules for testing for ketones Patient understands the basic concepts of pump therapy, how to give insulin for meals and snacks, how to troubleshoot for hyper and hypoglycemia. Setting verified by [facility], no changes made to insulin pump settings at today's visit due to inability to calculate settings based on manual boluses Basal rate(s) (units/hour) : 12 AM? to 12 AM ? 0.625 units / hr Bolus setting 12 AM to 12 AM 1:15 Correction Factor / Sensitivity Factor 12 AM to 12 AM 1:50 Active Insulin Time:? 4 hours Target(s): 12 AM to 12 AM 110 mg/dL Correct Above 12 AM to 12 AM 150 mg/dL Patient will follow up with [facility] as instructed Patient will contact [facility] with questions or concerns, patient given IT number to support in any technical issues related to insulin pump Coding Level of Care Code Est Pt Level 1 (44371) Diagnoses Type 1 diabetes mellitus E10.9
== END 2024-09-18 10:20 | disposition home or self-care (01) ==
LOC: HO.ENCR 09:36
PROVIDERS: PCP Family Medicine; Visit Provider Registered Nurse Diabetes Educator
DX: E10.9 Type 1 diabetes mellitus without complications (principal)

== ENCOUNTER → 2024-09-18 09:35 | Outpatient (BNVA) | payer BC, SELFPAY | PROVIDERS: PCP Family Medicine; Visit Provider Registered Nurse Diabetes Educator | DX: Z71.89 Other specified counseling (principal); Z46.81 Encounter for fitting and adjustment of insulin pump; E10.9 Type 1 diabetes mellitus without complications; Z79.4 Long term (current) use of insulin | CPT/HCPCS: 99211 ==

== ENCOUNTER 2024-10-03 15:59 | Outpatient (AMB) | payer BC, SELFPAY ==
--- NOTE | 2024-10-03 14:00 | A.OFFVIS_ITS ---
Vital Signs 10/03/24 16:02 Weight 233 lb 11.04 oz Intake Visit Reasons: T1DM Intake Note: Patient presents today for a follow-up on Type 1 Diabetes Mellitus: Last Diabetic eye exam was on: 05/20/2024 at [facility]. Last Podiatry exam was on: Patient does not see a Telegraphic Service Dispatcher Most recent HbA1c: 7.4%, 09/05/2024 Random Glucose- 94 mg/dL, Today Airplane Patrol Pilot Required: No Accompanied by: Self / Same As Patient Allergies Penicillins Allergy (Verified 10/03/24 16:09) unknown HPI Comments Details: 48 YO M who was seen in follow-up for type 1 diabetes. He was last seen 08/22/23. Hemoglobin A1c 08/25/24 7.4% Initially diagnosed with T1DM in age 41 when presented with DKA. Was seen several times by CDE Current regimen: Trsiba 18 units Humalog 1:15 changed to 1:14 1:50 for correction Dexcom average glucose: 172 14 day continuous glucose monitor report reviewed Days with CGM data 58.8 % TIme in ranges: 11 % very high (above 250) 27 % high ?(181-250) 62 % in range ?(70-180] 0 % low (69-55) 0 % ?very low (below 54) Interpretation 41% bolus 10.5 Auto mode 100% of the time numbers running 18 points above target with some postprandial increases He is entering in 102 carbs 59% of insulin or 15.1 units is basal Backup pump failure plan 15 units of tresiba Very rare sporadic hypoglycemia Treats lows with juice packs Family history of autoimmunity in daughter Type 1 DM No retinopathy. Last eye examination 05/2024 Denies neuropathy. Does not see podiatry symptoms: No numbness, tingling, pain or cramping in the lower extremities No nephropathy, on Not AMRITA/ARB. 12/19/2023 EGFR>60 No HLD not on statin LDL 98 12/19/2023 Denies history of CAD. 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 Denies prior severe episodes of hypoglycemia requiring help or hospitalization. [facility] Medical History Anxiety Type 1 diabetes mellitus Surgical History No pertinent past surgical history Family History Mother Cancer Father No problems noted. 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 Absence of acromegalic features. Neck exam reveals nl size thyroid about 15 gms. No thyroid nodules palpable. No carotid bruits present. Lungs CTA. Heart S1 S2, Reg R/R. No M/R G. Skin exam reveals absence of vitiligo or acanthosis nigricans. No edema Results Reviewed Results Reviewed: Laboratory Last Values Glucose (Clinic) 94 mg/dL (60-115) 10/03/24 16:07 Assessment & Plan Assessment & Plan (1) Type 1 diabetes mellitus: Code(s): E10.9 - Type 1 diabetes mellitus without complications Category: Medical Plan: 49-year-old type 1 diabetic on an insulin pump with improving glycemic control. Having some postprandial increases in his carb ratio was adjusted to give more pre meal insulin The patient had an opportunity to ask questions regarding treatment plan. The patient expressed understanding and agreement with the above treatment plan. The patient is aware they should contact our office by phone for worsening glucose readings or for any low blood sugars which may warrant a change in diabetes medication. Compliance is encouraged with medications and any followup testing/consults which may have been ordered. Patient Instructions: Symptoms of DKA (diabetic ketoacidosis): early: frequent urination, dry mouth, fatigue, feeling ill, severe symptoms: ketones in the urine, abdominal pain, nausea, vomiting and weakness. It is important to hydrate with sugar free liquids every 15-30 minutes and bring the sugars down to normal levels. If you are moderate or severe with ketones or unable to bring glucose to less than 200, go to the emergency room. Troubleshooting after starting new pod or inserting new insulin set: Occlusion, adhesive tape sensitivity, redness Check BG 2 hours after site change Safety information: Importance of a backup plan, for manual injections, proper prescriptions and emergency supplies ketone strips, and rules for testing for ketones Coding Level of Care Code Est Pt Level 4 (88313) Complex EM visit Add On G2211 Diagnoses Type 1 diabetes mellitus E10.9 Time Spent (min) 30 Comment Time spent reviewing labs/provider notes, face to face, chart doc
[2024-10-03 16:10] LABS: Glucose, Whole Blood 94 mg/dL (60-115)
== END 2024-10-03 16:45 | disposition home or self-care (01) ==
LOC: HO.ENCR 16:00
PROVIDERS: PCP Family Medicine; Visit Provider Nurse Practitioner Adult Health
DX: E10.9 Type 1 diabetes mellitus without complications (principal)
CPT/HCPCS: 99214

== ENCOUNTER → 2024-10-03 15:59 | Outpatient (BNVA) | payer BC, SELFPAY | PROVIDERS: PCP Family Medicine; Visit Provider Nurse Practitioner Adult Health | DX: E10.9 Type 1 diabetes mellitus without complications (principal); Z96.41 Presence of insulin pump (external) (internal) | CPT/HCPCS: 82947 ==

== ENCOUNTER 2025-01-19 13:51 | Outpatient (AMB) | payer BC, SELFPAY ==
--- NOTE | 2025-01-19 13:53 | A.OFFVIS_ITS ---
Vital Signs 01/19/25 13:56 Height 6 ft 1 in Weight 231 lb 11.293 oz BMI 30.6 BP 98/68 Blood Pressure Location Lt brachial Position Sitting Pulse 81 Pulse Source Pulse Oximeter Intake Visit Reasons: T1DM Intake Note: Patient present today to follow up on Type 1 Diabetes Mellitus. 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 Accompanied by: Self / Same As Patient Allergies Penicillins Allergy (Verified 01/19/25 13:57) unknown Medication List - Last Reconciled 01/19/25 by Roni Gould MD acetone (urine) test (Ketone Urine Test strips) tid prn glucose over 250, nausea, vomiting, illness blood sugar diagnostic (OneTouch Ultra Test strips) Test 3 times daily blood-glucose sensor (Dexcom G7 Sensor device) As directed every 10 days citalopram 30 mg (1.5 x 20 mg) PO DAILY 90 days insulin lispro 2-12 Units subcut 6 times a day; 30 days Novolog U-100 Insulin aspart (insulin aspart U-100) up to 50 units per day via pump subcutaneously use as directed; 90 days MDD 50 units NS Omnipod 5 G6-G7 Intro Kt(Gen5) (insulin technician terminal and repeater cart,aut,G6/7,cntr) continous use with insulin pump pods to be changed every 3 days NS Omnipod 5 G6-G7 Pods (Gen 5) (insulin pump cart,auto,BT,G6/7) As directed change every 3 days NS pen needle, diabetic As directed injects 4X/day Tresiba FlexTouch U-200 (insulin degludec) 15-18 units subcutaneously bedtime PRN; 15-18 units subcutaneously daily 30 days MDD 20 units NS HPI Comments Details: 49 YO M who was seen in follow-up for type 1 diabetes. He was last seen 10/03/24 by Tavia Diamond NP . Hemoglobin A1c 08/25/24 7.4% Initially diagnosed with T1DM in age 41 when presented with DKA. Was seen several times by CDE Current regimen: On Omnipod 5 pump Trsiba 18 units Humalog 1:15 1:50 for correction Dexcom average glucose: 175 14 day continuous glucose monitor report reviewed Days with CGM data 68.5 % TIme in ranges: 13 % very high (above 250) 27 % high ?(181-250) 60 % in range ?(70-180] 0 % low (69-55) 0 % ?very low (below 54) Basal rate equals 0.65 units/hour with insulin: Carbohydrate of 01:15 Interpretation 31% bolus 15.3 Auto mode 99% of the time numbers running 18 points above target with some postprandial increases He is entering in 92.1 carbs 59% of insulin or 15.1 units is basal Backup pump failure plan 15 units of tresiba Very rare sporadic hypoglycemia Treats lows with juice packs Family history of autoimmunity in daughter Type 1 DM No retinopathy. Last eye examination 05/2024 Denies neuropathy. Does not see podiatry symptoms: No numbness, tingling, pain or cramping in the lower extremities No nephropathy, on Not AMRITA/ARB. 12/19/2023 EGFR>60 No HLD not on statin LDL 98 12/19/2023 Denies history of CAD. 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 Has a daughter with type 1 diabetes Has had prior episodes of DKA. Denies prior severe episodes of hypoglycemia requiring help or hospitalization. [facility] Medical History Anxiety Type 1 diabetes mellitus Surgical History No pertinent past surgical history Family History Mother Cancer Father No problems noted. 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 Absence of acromegalic features. Neck exam reveals nl size thyroid about 15 gms. No thyroid nodules palpable. No carotid bruits present. Lungs CTA. Heart S1 S2, Reg R/R. No M/R/ G. Skin exam reveals absence of vitiligo or acanthosis nigricans. Abdominal exam reveals Soft NT/ND with NA BS. No organomegaly present. Extrem Other: Visual exam of foot performed. No ulcerations or open lesions. No onchomycosis, no callouses.Pulses 2 + distally. Sensation intact to monofilament exam. Vibratory sensation sensed 10 seconds in right, 10 seconds in left with 128 Hz tuning fork Results AMB Hemoglobin A1c AMB Hemoglobin A1c 7.6 % Last Edit by HUNG Davenport on 01/19/25 14:14 Results Reviewed Results Reviewed: Laboratory Last Values Glucose (Clinic) 110 mg/dL (60-115) 01/19/25 14:03 Assessment & Plan Assessment & Plan (1) Type 1 diabetes mellitus: Code(s): E10.9 - Type 1 diabetes mellitus without complications Category: Medical Plan: This is a 47-year-old white male with a history of type 1 diabetes being treated with basal-bolus insulin with fair not optimal glycemic control no known microvascular or macrovascular complications. Plan is? to? tighten to 1: 12 before lunch and dinner .? We will check lipid profile microalbumin to creatinine ratio when available Orders: Orders AMB Hemoglobin A1c Today E10.9 - Type 1 diabetes mellitus without complications Microalbumin, Random (w Creat) Today E10.9 - Type 1 diabetes mellitus without complications Coding Level of Care Code Est Pt Level 4 (71521) Complex EM visit Add On G2211 Diagnoses Type 1 diabetes mellitus E10.9
[2025-01-19 13:56] VITALS: BP 98/68; PULSE 81; BMI 30.6
[2025-01-19 14:07] LABS: Glucose, Whole Blood 110 mg/dL (60-115)
--- OUTSIDE RECORDS SUMMARY | 2025-01-19 14:16 | XMS_ITS ---
Author Name [facility] Organization Unknown Care Team Organization Name Specialty Phone Email Start Date End Da te [facility] Termed, PROVIDER Primary Care 04/18/202201/09
== END 2025-01-19 14:33 | disposition home or self-care (01) ==
LOC: HO.ENCR 13:51
PROVIDERS: PCP Family Medicine; Visit Provider Internal Medicine Endocrinology, Diabetes & Metabolism
DX: E10.9 Type 1 diabetes mellitus without complications (principal)
CPT/HCPCS: 99214

== ENCOUNTER → 2025-01-19 13:51 | Outpatient (BNVA) | payer BC, SELFPAY | PROVIDERS: PCP Family Medicine; Visit Provider Internal Medicine Endocrinology, Diabetes & Metabolism | DX: E10.9 Type 1 diabetes mellitus without complications (principal) | CPT/HCPCS: 82947; 83036 ==

== ENCOUNTER 2025-02-11 10:37 | Outpatient (REF) | payer BC, SELFPAY ==
[2025-02-11 14:26] LABS: Alanine Aminotransferase 22 U/L (0-40); Albumin Level 4.3 g/dL (3.5-5.0); Alkaline Phosphatase 81 U/L (39-117); Anion Gap 13 (12-20); Aspartate Amino Transferase 31 U/L (5-37); Blood Urea Nitrogen 15 mg/dL (9-16); Calcium 8.9 mg/dL (8.4-10.2); Carbon Dioxide 25 mmol/L (22-29); Chloride 104 mmol/L (96-108); Cholesterol 187 mg/dL (<200); Estimated Glomerular Filt Rate > 60; HDL Cholesterol 75 mg/dL (>40); Potassium 4.2 mmol/L (3.3-5.1); Sodium 138 mmol/L (135-145); Total Protein 6.9 g/dL (6.5-8.0); Triglycerides 76 mg/dL (<150)
== END 2025-02-11 10:38 | disposition home or self-care (01) ==
LOC: HO.WFDLDS 10:37
PROVIDERS: Visit Provider Family Medicine
DX: Z00.00 Encounter for general adult medical examination without abnormal findings (principal); Z12.5 Encounter for screening for malignant neoplasm of prostate; Z13.6 Encounter for screening for cardiovascular disorders; Z13.29 Encounter for screening for other suspected endocrine disorder
CPT/HCPCS: 36415; 80053; 80061; 84153; 84443